=== PATIENT | female | born 1990 | race Caucasian/White ===

== ENCOUNTER 2016-07-14 20:40 | Emergency (ER) | payer OTHER ==
[2016-07-14 20:48] VITALS: BP 128/63; PULSE 64; RESP 16; TEMP 97.5; O2SAT 97
--- NOTE | 2016-07-14 21:09 | EDPHY ---
H & P Smoking Status: Never smoked Time Seen by Provider: 07/14/16 21:00 HPI/ROS: CHIEF COMPLAINT: Left 4th digit injury HISTORY OF PRESENT ILLNESS: 26-year-old female [id number] sustained accidental skin avulsion to her left 4th digit distal phalanx when she was using a knife cutting vegetables. Tetanus is up-to-date. No paresthesia. PHYSICAL EXAM (Prior to examination, patient consented to physical exam, hands were washed and my usual and customary physical exam procedures followed) 1) GENERAL: Well-developed, well-nourished, alert and oriented. Appears to be in no acute distress. 2) HEAD: Normocephalic 3) HEENT: sclera anicteric 4) LUNGS: Breathing comfortably. 5) SKIN: skin avulsion 6) MUSCULOSKELETAL: left 4th digit distal phalanx skin avulsion measuring 0.5 cm x 0.5 cm, superficial. No osseous fragments visualized or palpated 7) NEUROLOGIC: Full sensation (Celestine,D Mercedez) Constitutional: Initial Vital Signs Temperature (C) 36.4 C 07/14/16 20:44 Heart Rate 64 07/14/16 20:44 Respiratory Rate 16 07/14/16 20:44 Blood Pressure 128/63 H 07/14/16 20:44 O2 Sat (%) 97 07/14/16 20:44 O2 Delivery Mode Room Air Allergies/Adverse Reactions: gluten Allergy (Mild, Verified 07/22/15 16:17) digestive lactose Allergy (Mild, Verified 07/22/15 16:17) GI latex Allergy (Mild, Verified 07/22/15 16:16) Rash avocado Allergy (Verified 07/14/16 20:48) Home Medications: Medication Instructions Recorded Ciclesonide [Alvesco] 160 gm IH DAILY 07/22/15 Foradyl 07/22/15 Levalbuterol 1.25 mg [Xopenex 1.25 mg IH 07/22/15 1.25MG Neb] Montelukast Sodium [Singulair] 10 mg PO DAILY@1800 07/22/15 MDM/Departure - [facility] Procedures: Procedure: Laceration repair. I explained the indications, risks and benefits for both laceration repair and anesthetic administration. Verbal consent was obtained from the patient . The 4th digit was anesthetized using 0.5% bupivicaine without epinephrine digital nerve block. After anesthetic administered the patient was observed for a period of time and had no apparent adverse effects. Wound was cleaned and dressed with Surgicel skin dressing by ER staff (Pricilla Sprague) ED Course/Re-evaluation: The patient was evaluated and managed by the Physician Leave Specialist/ Nurse Practitioner. My co-signature indicates that I have reviewed this chart and I agree with the findings and plan of care as documented. I am the secondary supervising physician. (Selene Chandra) - Depart Disposition: Home, Routine, Self-Care Clinical Impression: Left 4th digit skin avulsion Condition: Good Instructions: Skin Avulsion (ED) Additional Instructions: Return to the ER if you develop redness, swelling, discharge, warmth to the wound, red streaks going up your arm , or any other symptoms that concern you. Referrals: Shelly Alba MD [Primary Care Provider] - 5-7 days, call for appt.
== END 2016-07-14 21:35 | disposition home or self-care (01) ==
PROC: 3E0T3BZ Introduction of Anesthetic Agent into Peripheral Nerves and Plexi, Percutaneous Approach (ICD-10-PCS; principal; 2016-07-14)
DX: S61.205A Unspecified open wound of left ring finger without damage to nail, initial encounter (principal); Z91.040 Latex allergy status; W26.0XXA Contact with knife, initial encounter